=== PATIENT | female | born 1970 | race Hispanic/Latino ===

== ENCOUNTER 2020-08-03 13:21 | Outpatient (CLI) | payer OTHER ==
--- NOTE | 2020-08-03 13:51 | RAD ---
RIGHT WRIST 3 VIEWS: Date: 08/03/2020 HISTORY: Patient fell on 07/24/2020. Persistent distal radial pain. COMPARISON: 07/24/2020 exam. FINDINGS: There are no signs of fracture or dislocation. Joint spaces appear well preserved. IMPRESSION: No evidence of fracture. POS: [facility]
== END 2020-08-03 13:22 | disposition home or self-care (01) ==
LOC: BICRAD 13:21
PROVIDERS: ATTEND Family Medicine
DX: M25.531 Pain in right wrist (principal)

== ENCOUNTER 2020-08-11 13:32 | Outpatient (CLI) | payer OTHER | END 2020-08-11 13:33 | disposition home or self-care (01) | LOC: BICMAMMO 13:32 | PROVIDERS: ATTEND Family Medicine | DX: R92.8 Other abnormal and inconclusive findings on diagnostic imaging of breast (principal) | CPT/HCPCS: 77066; G0279 ==

== ENCOUNTER 2020-12-29 15:33 | Outpatient (CLI) | payer OTHER | END 2020-12-29 15:34 | disposition home or self-care (01) | LOC: BICULT 15:33 | PROVIDERS: ATTEND Family Medicine | DX: R10.2 Pelvic and perineal pain (principal) | CPT/HCPCS: 76856 ==

== ENCOUNTER 2021-08-21 15:45 | Outpatient (CLI) | payer OTHER | END 2021-08-21 15:46 | disposition home or self-care (01) | LOC: BICRAD 15:45 | PROVIDERS: ATTEND Family Medicine | DX: M25.512 Pain in left shoulder (principal); M54.2 Cervicalgia | CPT/HCPCS: 72040 ==

== ENCOUNTER 2021-12-08 09:42 | Outpatient (CLI) | payer OTHER | END 2021-12-08 09:43 | disposition home or self-care (01) | LOC: BICMAMMO 09:42 | PROVIDERS: ATTEND Family Medicine | DX: N63.11 Unspecified lump in the right breast, upper outer quadrant (principal) | CPT/HCPCS: G0279 ==

== ENCOUNTER 2022-03-29 14:58 | Outpatient (CLI) | payer OTHER | END 2022-03-29 14:59 | disposition home or self-care (01) | LOC: BICRAD 14:58 | PROVIDERS: ATTEND Family Medicine | DX: J40 Bronchitis, not specified as acute or chronic (principal); R05.3 Chronic cough | CPT/HCPCS: 71046 ==

== ENCOUNTER 2022-09-13 07:52 | Outpatient (CLI) | payer OTHER | END 2022-09-13 07:53 | disposition home or self-care (01) | LOC: BICMRI 07:52 | PROVIDERS: ATTEND Physician Assistant Medical | DX: R11.0 Nausea (principal) | CPT/HCPCS: 70551 ==

== ENCOUNTER 2022-12-19 12:38 | Outpatient (CLI) | payer OTHER | END 2022-12-19 12:39 | disposition home or self-care (01) | LOC: BICMAMMO 12:38 | PROVIDERS: ATTEND Family Medicine | DX: Z12.31 Encounter for screening mammogram for malignant neoplasm of breast (principal) | CPT/HCPCS: 77067 ==

== ENCOUNTER 2023-01-10 09:56 | Outpatient (CLI) | payer OTHER | END 2023-01-10 09:57 | disposition home or self-care (01) | LOC: RAD 09:56 | PROVIDERS: ATTEND Family Medicine | DX: M79.674 Pain in right toe(s) (principal); S92.411A Displaced fracture of proximal phalanx of right great toe, initial encounter for closed fracture ==

== ENCOUNTER 2023-03-12 14:25 | Outpatient (CLI) | payer OTHER | END 2023-03-12 14:26 | disposition home or self-care (01) | LOC: RAD 14:25 | PROVIDERS: ATTEND Family Medicine | DX: M25.521 Pain in right elbow (principal); M77.11 Lateral epicondylitis, right elbow; I10 Essential (primary) hypertension ==

== ENCOUNTER 2023-12-23 09:33 | Outpatient (CLI) | payer BC | END 2023-12-23 09:34 | disposition home or self-care (01) | LOC: BICMAMMO 09:33 | PROVIDERS: ATTEND Family Medicine | DX: Z12.31 Encounter for screening mammogram for malignant neoplasm of breast (principal) | CPT/HCPCS: 77063; 77067 ==

== ENCOUNTER 2024-03-18 07:42 | Outpatient (CLI) | payer BC ==
[2024-03-18] MEDS ORDERED: Iopamidol 370 76% 100 ML VIAL ONE (12:04)
== END 2024-03-18 07:43 | disposition home or self-care (01) ==
LOC: CT 07:42
PROVIDERS: ATTEND Family Medicine
DX: S69.91XD Unspecified injury of right wrist, hand and finger(s), subsequent encounter (principal); K45.8 Other specified abdominal hernia without obstruction or gangrene; R10.11 Right upper quadrant pain; R10.31 Right lower quadrant pain
CPT/HCPCS: 74178; Q9967

== ENCOUNTER 2025-06-08 07:55 | Outpatient (CLI) | payer OTHER | END 2025-06-08 07:56 | disposition home or self-care (01) | LOC: BICMRI 07:55 | PROVIDERS: ATTEND Family Medicine | DX: S90.32XD Contusion of left foot, subsequent encounter (principal); S86.312A Strain of muscle(s) and tendon(s) of peroneal muscle group at lower leg level, left leg, initial encounter ==